=== PATIENT | male | born 1975 | race Caucasian/White ===

== ENCOUNTER 2023-11-22 15:26 | Emergency (ER) | payer OTHER, SELFPAY ==
[2023-11-22 15:33] VITALS: BP 167/91; PULSE 96; RESP 16; TEMP 37.1; O2SAT 97; BMI 34.8
[2023-11-22] MEDS: TET,DIPH,PERTUSS(ACELL),VAC/PF 0.5 ML SYRINGE IM (16:34)
--- NOTE | 2023-11-22 16:50 | ED_ITS ---
HPI - Wound/Laceration General Chief Complaint: Wound/Laceration Stated Complaint: lt arm lac w/ quinn knife Time Seen by Provider: 11/22/23 16:40 Source: patient Mode of arrival: Ambulatory History of Present Illness HPI narrative: Patient presents for left forearm laceration. Patient crabbing with friends and accidentally cut himself on a quinn knife. He is not up-to-date on his tetanus shot. Related Data Previous Rx's Medication Instructions Recorded doxycycline hyclate 100 mg tablet 100 mg PO BID #20 tabs 11/22/23 Allergies Allergy/AdvReac Type Severity Reaction Status Date / Time Penicillins Allergy Verified 11/22/23 15:36 Patient History Social History Smoking Status: Never smoker Smoking Status: Never smoker alcohol intake frequency: a few times a week Substance Use Type: does not use Exam Initial Vital Signs Initial Vital Signs: Vital Signs Temperature 98.8 F 11/22/23 15:33 Pulse Rate 96 H 11/22/23 15:33 Respiratory Rate 16 11/22/23 15:33 Blood Pressure 167/91 H 11/22/23 15:33 Pulse Oximetry 97 11/22/23 15:33 Oxygen Delivery Method Room Air 11/22/23 15:33 Const: Awake, alert, no acute distress, nontoxic appearing MSK: full range of motion, pulses equal Skin: Warm, Dry, 2.5 cm laceration over dorsal aspect of left forearm Neuro: AO x3, CN II-XII grossly intact, moves all extremities Procedures Laceration Repair Laceration 1: Site: upper extremity Side (If applicable): left Size (cm): 2.5 Description: linear Depth: simple, single layer Local Anesthetic: lidocaine 1% and with epi Amount of anesthesia used (mL): 2 Pre-repair: wound explored, irrigated extensively and deep structures intact Skin layer closed with: nylon Skin layer suture size: 4-0 Number of sutures: 1 Technique: running Course Orders Ordered: Discontinued Medications Diphtheria/Tetanus/Acell Pertussis (Tet,Diph,Pertuss(Acell),Vac/Pf 0.5 Ml Syringe) 0.5 ml IM .ONCE ONE Stop: 11/22/23 16:25 Last Admin: 11/22/23 16:34 Dose: 0.5 ml Documented By: WICHO Vital Signs Vital signs: Vital Signs - 8 hr 11/22/23 15:33 Temperature 98.8 F Pulse Rate 96 H Respiratory Rate 16 Blood Pressure 167/91 H Pulse Oximetry 97 Oxygen Delivery Method Room Air MDM - Wound/Laceration Differential Diagnosis Differential diagnosis: Likely laceration, abscess and abrasion MDM Narrative Medical decision making narrative: Accidental forearm laceration. Tetanus updated, wound irrigated by nursing staff. Repaired per procedure note with a single running suture. Since patient did have sea water exposure with the cut a prescription of doxycycline was sent to the pharmacy of choice. Wound care instructions discussed at bedside Discharge Plan Departure Patient Disposition: Home Clinical Impression: Laceration Instructions: DI for Laceration Repair Activity Restrictions/Additional Instructions: FINISH ALL ANTIBIOTICS PRESCRIBED EVEN IF YOU FEEL BETTER. IF YOU NOTICE REDNESS, DRAINAGE, SWELLING PLEASE RETURN FOR REPEAT EVALUATION. DOXYCYCLINE HAS BEEN SENT TO THE [facility] [place] Prescriptions: New doxycycline hyclate 100 mg tablet 100 mg PO BID Qty: 20 0RF Stand Alone Forms: Patient Portal/API
== END 2023-11-22 16:55 | disposition home or self-care (01) ==
PROVIDERS: Emergency Provider Emergency Medicine
DX: S51.812A Laceration without foreign body of left forearm, initial encounter (principal); W26.0XXA Contact with knife, initial encounter; Z23 Encounter for immunization
CPT/HCPCS: 12001; 90471; 99283; 90715